=== PATIENT | male | born 1955 | race Hispanic/Latino ===

== ENCOUNTER 2019-08-12 06:57 | Day surgery (SDC) | payer BC ==
[2019-08-11 13:24] VITALS: BMI 26.6
[2019-08-12 07:36] VITALS: BP 122/84; TEMP 97.6
--- NOTE | 2019-08-12 09:54 | CT ---
CT lumbar spine with contrast: (CT lumbar myelogram) DATE: 08/12/2019 HISTORY: 61-year-old male with low back pain and right lumbar radiculopathy. COMPARISON: Noncontrast MRI of 07/27/2016. FINDINGS: 5 lumbar-type vertebrae. Vertebral body heights maintained. No scoliosis. No major spondylolisthesis or spondylolysis. T12-L1: Normal. L1-2: Conus medullaris terminates here. Normal. L2-3: Mild to moderate disc space narrowing, diffuse disc bulge, and slight degenerative retrolisthes is of L2 on L3, as previously demonstrated. Mild ligamentum flavum thickening. Mild central spinal canal stenosis. Posterior epidural fat pad. Mild to moderate thecal sac stenosis. Mild to moderate bi lateral neural foraminal stenosis. Probably no major interval change. L3-4: Interval development of moderate disc space narrowing. Mild vacuum disc phenomenon. Previously, there was a very mild diffuse disc bulge. This has become larger, resulting in greater degree of central spinal canal stenosis, which is now moderate to severe. Posterior epidural fat pad. Ligamentu m flavum thickening. Severe thecal sac stenosis with crowding of cauda equina and effacement of CSF signal. Demonstrated on sagittal images (image 46 of 80, series 401), but difficult to appreciate on axial images, there is soft tissue density material asymmetrically occupying the left lateral aspect of the spinal canal which questionably represents left lateral extruded disc herniation materi al, with slight inferior and superior migration, inseparable from the left thickened ligamentum flavum. Mild to moderate bilateral facet DJD. New bilateral pedicle screws at L4. No signs of hardwar e loosening. No malpositioning. L4-5: Metallic markers for interbody cage at interbody disc space. There is a right paramedian anteri or bridging osteophyte between the endplates protruding into the prevertebral space. No other osseous bridges are visualized across the moderately narrowed disc space. New midline laminectomy def ect resulting in generous caliber of spinal canal and thecal sac. New bilateral pedicle screws at L5. No hardware loosening or malpositioning. Interval resolution of the previously demonstrated grade 1 anterolisthesis of L4 on L5. Mild bilateral neural foraminal stenosis. L5-S1:Metallic markers for interbody cage at interbody disc space. No osseous bridges are visualized across the moderately narrowed disc space. New bilateral S1 pedicle screws. No signs of hardware loosening or malpositioning. There was no central spinal canal stenosis previously or high-grade thec al sac stenosis. There was a prominent left posterior epidural fat pad. That fat pad has regressed, such that the thecal sac is generous in caliber now. Mild bilateral neural foraminal stenosis. The pr eviously demonstrated slight degenerative retrolisthesis of L5 on S1 has also resolved. IMPRESSION: 1. Since the prior MRI, the patient has undergone interval posterior lumbar interbody fusion at L4-L5 -S1, with bilateral pedicle screws; and interval decompressive laminectomy at L4-5. 2. Interval resolution of the previously demonstrated central spinal canal stenosis at L4-5, and inte rval resolution of the previously demonstrated grade 1 spondylolisthesis at L4-5. 3. Interval worsening of degenerative disc disease at the level directly superior to the surgical fus ion, resulting in new severe thecal sac stenosis at L3-4, mostly due to interval enlargement of the diffuse disc bulge at that level. 4. Additionally at L3-4, there is material at the left lateral recess, then exact nature of which is difficult to discern on CT. Possibilities include superimposed left lateral disc extrusion versus asymmetrically greater left-sided ligamentum flavum thickening versus new left synovial cyst.
[2019-08-12] MEDS ORDERED: Iopamidol-M 200 41% 20 ML VIAL ONE (13:02)
[2019-08-12] MEDS ORDERED: FLU VACC QS2019-20(6MOS UP)/PF 60 MCG/0.5 ML SYRINGE IM ONE (13:45)
== END 2019-08-12 09:50 | disposition home or self-care (01) ==
LOC: RAD 06:57
PROVIDERS: ATTEND Nurse Practitioner Family
PROC: B02B1ZZ Computerized Tomography (CT Scan) of Spinal Cord using Low Osmolar Contrast (ICD-10-PCS; principal; 2019-08-12)
DX: M47.26 Other spondylosis with radiculopathy, lumbar region (principal); M46.1 Sacroiliitis, not elsewhere classified; D64.9 Anemia, unspecified; E78.00 Pure hypercholesterolemia, unspecified; K21.9 Gastro-esophageal reflux disease without esophagitis; Z79.1 Long term (current) use of non-steroidal anti-inflammatories (NSAID); Z87.891 Personal history of nicotine dependence; Z88.0 Allergy status to penicillin; Z88.1 Allergy status to other antibiotic agents
CPT/HCPCS: 62304; 72132; Q9966

== ENCOUNTER 2020-06-07 06:29 | Outpatient (CLI) | payer BC ==
[2020-06-07 10:48] LABS: Hemoglobin 14.1 g/dL (14.0-18.0); Mean Corpuscular HGB CONC 34.2 G/DL (32.0-36.0); Mean Corpuscular Hemoglobin 30.5 PG (27.0-33.0); Mean Platelet Volume 10.3 fl (7.4-10.4); Platelet Count 242 10x3/uL (130-400); RBC Distribution Width 12.5 % (11.5-14.5); Red Blood Cell (RBC) Count 4.63 10x6/uL (4.40-5.80); White Blood Cell (WBC) Count 5.6 10x3/uL (4.5-11.0)
[2020-06-07 11:07] LABS: INR-International Normal Ratio 0.9; PTT 27.1 sec (22.0-33.0); Prothrombin Time 9.8 sec (9.5-12.1)
[2020-06-07 11:15] LABS: Anion Gap 12 mmol/L (10-20); BUN (Urea Nitrogen) 18 mg/dL (8.4-25.7); Calc. Creatinine Clearance 0 mL/min (70-130); Calcium 9.5 mg/dL (7.8-10.44); Carbon Dioxide 27 mmol/L (23-31); Chloride 105 mmol/L (98-107); Estimated GFR-MDRD 88; Glucose 91 mg/dL (80-115); Potassium 4.7 mmol/L (3.5-5.1); Sodium 139 mmol/L (136-145)
[2020-06-07 20:04] LABS: SARS-CoV-2 MS2 Positive; SARS-CoV-2 N Gene Negative; SARS-CoV-2 S Gene Negative; SARS-CoV-2 by NAA Not Detected (NotDetected); SARS-CoV-2 orf1ab Negative
--- NOTE | 2020-06-08 07:09 | EKG ---
Test Reason : Blood Pressure : / mmHG Vent. Rate : 066 BPM Atrial Rate : 066 BPM P-R Int : 182 ms QRS Dur : 098 ms QT Int : 386 ms P-R-T Axes : 074 -03 062 degrees QTc Int : 404 ms Normal sinus rhythm Incomplete right bundle branch block No previous ECGs available Confirmed by DR. Paramjit ESPINOZA ([id number]) on 06/08/2020 7:09:30 AM Referred By: Heather MYLES Confirmed By:DR. Paramjit ESPINOZA
== END 2020-06-07 06:30 | disposition home or self-care (01) ==
LOC: LABBT 06:29
PROVIDERS: ATTEND Surgery
DX: Z01.818 Encounter for other preprocedural examination (principal); Z20.828 Contact with and (suspected) exposure to other viral communicable diseases; M51.16 Intervertebral disc disorders with radiculopathy, lumbar region; M48.062 Spinal stenosis, lumbar region with neurogenic claudication
CPT/HCPCS: 80048; 85027; 85610; 85730; 87635; 93005; 93010; U0003

== ENCOUNTER 2020-06-09 05:56 | Day surgery (SDC) | payer BC ==
[2020-06-08 11:12] VITALS: BMI 25.2
[2020-06-09] MEDS ORDERED: Levofloxacin 500 mg/D5W 100 ml Premix Bag ONE (06:22)
[2020-06-09] MEDS ORDERED: Clindamycin/D5W 900 mg/50 ml Premix Bag ONE (06:22)
[2020-06-09] MEDS ORDERED: Thrombin 5000 UNITS/5 ML VIAL ONE (06:36)
[2020-06-09] MEDS ORDERED: Fentanyl 100 MCG/2 ML VIAL ONE (06:56)
[2020-06-09] MEDS ORDERED: HYDROmorphone 2 MG/ML VIAL ONE (06:56)
[2020-06-09] MEDS ORDERED: Midazolam HCl 2 mg/2 ml Vial ONE (07:20)
[2020-06-09] MEDS ORDERED: traMADol HCl 50 MG TAB PO PRN (10:00)
[2020-06-09] MEDS ORDERED: Acetaminophen/Codeine 30-300mg Tablet PO PRN (10:00)
[2020-06-09] MEDS ORDERED: HYDROcodone/Acetaminophen 7.5/325 mg Tablet PO PRN (10:00)
[2020-06-09] MEDS ORDERED: Milk Of Magnesia 30 ML UDCUP PO PRN (10:00)
[2020-06-09] MEDS ORDERED: Mag-Al 1200 mg/1200 mg/30 ML UDCUP PO PRN (10:00)
[2020-06-09] MEDS ORDERED: Ondansetron PF 4 MG/2 ML Vial IVP PRN (10:00)
[2020-06-09] MEDS ORDERED: Morphine 2 MG/ML VIAL SLOW IVP PRN (10:00)
[2020-06-09] MEDS ORDERED: Acetaminophen 325 MG TAB PO PRN (10:00)
[2020-06-09] MEDS ORDERED: Bisacodyl 10 MG SUPP PR PRN (10:00)
[2020-06-09] MEDS ORDERED: Cyclobenzaprine 10 MG TAB PO PRN (10:02)
[2020-06-09] MEDS ORDERED: Promethazine HCl 25 MG/ML VIAL IM PRN (10:14)
[2020-06-09] MEDS ORDERED: PACU-Morphine 4MG/ML VIAL SLOW IVP PRN (10:14)
[2020-06-09] MEDS ORDERED: Ondansetron HCl/PF 4 MG/2 ML Vial IVP PRN (10:14)
[2020-06-09] MEDS ORDERED: HYDROmorphone 2 MG/ML VIAL SLOW IVP PRN (10:14)
[2020-06-09] MEDS ORDERED: Morphine Sulfate 2 MG/ML SYRINGE SLOW IVP PRN (10:14)
[2020-06-09] MEDS ORDERED: PROPOFOL 200 MG/20 ML VIAL ONE (11:39)
[2020-06-09] MEDS ORDERED: Glycopyrrolate 0.2 MG/ML 5 ML SYRINGE ONE (11:39)
[2020-06-09] MEDS ORDERED: Rocuronium Bromide 10 MG/ML (10ML VIAL) ONE (11:39)
[2020-06-09] MEDS ORDERED: diphenhydrAMINE 50 MG/ML VIAL ONE (11:39)
[2020-06-09] MEDS ORDERED: Dexamethasone 20 MG/5 ML VIAL ONE (11:39)
[2020-06-09] MEDS ORDERED: Ondansetron PF 4 MG/2 ML Vial ONE (11:39)
[2020-06-09] MEDS ORDERED: PHENYLEPHRINE-NS 100 MCG/ML 10 ML SYRINGE ONE (11:39)
[2020-06-09] MEDS ORDERED: Ketorolac Tromethamine 30 MG/ML VIAL ONE (11:39)
[2020-06-09] MEDS: Sodium Chloride 0.9% 1,000 ML IV SCH ×2 (13:18→23:54)
[2020-06-09] MEDS: Clindamycin/D5W 900 MG in Premix Bag 1 BAG IVPB SCH ×2 (14:41→21:19)
[2020-06-09] MEDS ORDERED: Chloraseptic Spray 180 ml Bottle PO PRN (17:58)
[2020-06-09] MEDS ORDERED: Cepastat Lozenges 1 LOZ PO PRN (17:59)
[2020-06-10 07:50] VITALS: BP 134/80; TEMP 98.4
--- NOTE | 2020-06-10 07:56 | PRG ---
DATE OF SERVICE: 06/10/2020 Mr. Dejesus is doing very well postoperative day 1 from L2-L4 laminectomy and left-sided L3-L4 diskectomy. He has had resolution in his leg pain. His strength is intact. He is mobilizing, has met criteria for discharge. We will discharge him home. Job ID: [id number]
--- NOTE | 2020-06-10 08:23 | OP ---
DATE OF PROCEDURE: 06/09/2020 LOCATION: OR 11. ASSET PROTECTION PROFESSIONAL: Raquel Lynn PA-C. 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 PROCEDURES PERFORMED: 1. L2-L3 and L3-L4 laminectomies, partial facetectomies, and foraminotomies with left L3-L4 diskectomy. 2. Use of operative microscope for microdissection. DESCRIPTION OF PROCEDURE: After informed consent was obtained from the patient, the patient was brought to the OR. Proper patient, pause, and identification were carried out. The patient was then placed under excellent general endotracheal anesthesia and positioned prone on the OR table. All appropriate points were padded. We identified the L2, L3, and L4 dorsal spines and lamina. A linear pwoer was made over this region. This area was sterilely cleansed, prepared, and draped. Proper patient, pause, and identification were carried out. The wound was then opened with combination of sharp, monopolar, and blunt dissection. I proceeded to expose the L2, L3, and L4 dorsal spines and lamina. Localization film confirmed our area of interest. We then performed L2-L3 and L3-L4 laminectomies, partial facetectomies, and foraminotomies. We then worked over the shoulder of the left L4 traversing nerve root with the operative microscope for microdissection and proceeded to perform the left L3-L4 diskectomy with excellent decompression of common dural tube and nerve roots. Copious irrigation occurred throughout. We then maximized hemostasis and closed the wound in anatomic layers. Job ID: [id number]
== END 2020-06-10 09:00 | disposition home or self-care (01) ==
LOC: SDC 05:56 → SURG A 12:43 → SDC 06-10 09:00
PROVIDERS: ATTEND Surgery
PROC: 01NB0ZZ Release Lumbar Nerve, Open Approach (ICD-10-PCS; principal; 2020-06-09)
PROC: 0SB20ZZ Excision of Lumbar Vertebral Disc, Open Approach (ICD-10-PCS; principal; 2020-06-09)
DX: M48.061 Spinal stenosis, lumbar region without neurogenic claudication (principal); M51.16 Intervertebral disc disorders with radiculopathy, lumbar region; Z79.1 Long term (current) use of non-steroidal anti-inflammatories (NSAID); Z88.0 Allergy status to penicillin; Z88.1 Allergy status to other antibiotic agents
CPT/HCPCS: 76000; J1100; J1170; J1200; J1885; J1956; J2250; J2405; J2704; J3010; J3370; J3490

== ENCOUNTER 2020-11-02 09:38 | Outpatient (CLI) | payer BC | END 2020-11-02 09:39 | disposition home or self-care (01) | LOC: BICRAD 09:38 | PROVIDERS: ATTEND Nurse Practitioner Family | DX: M43.06 Spondylolysis, lumbar region (principal); M47.816 Spondylosis without myelopathy or radiculopathy, lumbar region; Z98.890 Other specified postprocedural states | CPT/HCPCS: 72110 ==

== ENCOUNTER 2022-02-13 12:07 | Outpatient (CLI) | payer BC | END 2022-02-13 12:08 | disposition home or self-care (01) | LOC: SCSMRI 12:07 | PROVIDERS: ATTEND Nurse Practitioner Family | DX: M96.1 Postlaminectomy syndrome, not elsewhere classified (principal); M48.061 Spinal stenosis, lumbar region without neurogenic claudication; Z98.890 Other specified postprocedural states | CPT/HCPCS: 72148 ==